=== PATIENT | female | born 1970 | race Caucasian/White ===

== ENCOUNTER 2024-06-26 12:44 | Emergency (ER) | payer MEDICAID, OTHER ==
[~2024-06-26] VITALS: Ht 144.8 cm; Wt 59.0 kg
[2024-06-26 13:03] VITALS: O2SAT 99
[2024-06-26 13:49] LABS: BASOPHILS % 0.7 % (0.0-2.0); EOSINOPHILS % 1.6 % (0.0-5.0); HEMATOCRIT. 39.7 % (36.0-48.0); HEMOGLOBIN. 13.4 g/dL (12.0-16.0); LYMPHOCYTES % 28.9 % (20.0-50.0); MEAN CORPUSCULAR HEMOGLOBIN 29.3 pg (28.0-32.0); MEAN CORPUSCULAR HGB CONC 33.7 g/dL (31.0-37.0); MEAN CORPUSCULAR VOLUME 87.2 fL (81.0-99.0); MEAN PLATELET VOLUME 8.2 fl (7.4-10.4); NEUTROPHILS % 62.8 % (40.0-76.0); PLATELET 279 x1000/uL (130-400); RED BLOOD CELL COUNT 4.55 mill/uL (4.2-5.4); RED CELL DISTRIBUTION WIDTH 13.8 % (11.6-14.6); WHITE BLOOD COUNT 5.9 x1000/uL (4.5-11.0)
[2024-06-26 13:56] LABS: CHLORIDE 104 mEq/L (98-107); POTASSIUM 3.8 mEq/L (3.5-5.1); SODIUM 138 mEq/L (136-145)
[2024-06-26 13:57] LABS: CALCIUM 9.6 mg/dL (8.7-10.4); CARBON DIOXIDE 30 mEq/L (21-32)
[2024-06-26 14:02] LABS: CREATININE 0.7 mg/dL (0.6-1.0); GLUCOSE 100 mg/dL (70-105); UREA NITROGEN BLOOD 13 mg/dL (9-23)
[2024-06-26 14:03] LABS: TROPONIN I HIGH SENSITIVITY 7 ng/L (3.0-34)
[2024-06-26] MEDS: HYDRALAZINE 20MG/ML VIAL IV ONE (14:55)
[2024-06-26 15:02] LABS: CLARITY URINE CLEAR (CLEAR); COLOR URINE YELLOW (YELLOW); GLUCOSE URINE NEGATIVE (NEGATIVE); KETONES URINE NEGATIVE (NEGATIVE); LEUKOCYTE ESTERASE URINE NEGATIVE (NEGATIVE); NITRITE URINE NEGATIVE (NEGATIVE); OCCULT BLOOD URINE NEGATIVE (NEGATIVE); PROTEIN URINE NEGATIVE (NEGATIVE); SPECIFIC GRAVITY URINE 1.004 (1.005-1.030); UROBILINOGEN URINE 0.2 E.U./dL (0.2-1.0)
[2024-06-26] MEDS ORDERED: AMLO5TAB88 MT (16:31)
[2024-06-26] MEDS: AMLODIPINE 5MG TABLET PO ONE (16:45)
[2024-06-26 17:04] VITALS: BP 143/73; PULSE 88; TEMP 98.6
== END 2024-06-26 17:10 | disposition home or self-care (01) ==
LOC: ER 12:44
DX: I10 Essential (primary) hypertension (principal); R41.82 Altered mental status, unspecified
CPT/HCPCS: 36415; 80048; 81003; 84484; 85025; 93005; 96374; 99285; J0360